=== PATIENT | female | born 1970 | race Caucasian/White ===

== ENCOUNTER 2021-09-11 18:18 | Emergency (ER) | payer OTHER ==
[~2021-09-11] VITALS: Ht 160 cm; Wt 97.5 kg
[2021-09-11] MEDS ORDERED: HYZAAR 100-251 EACH (19:24)
[2021-09-11] MEDS ORDERED: TOPROL XL50 M1 (19:25)
[2021-09-11] MEDS ORDERED: VAITORIN (19:25)
[2021-09-11] MEDS ORDERED: SYNTHROID50 MCG (19:25)
[2021-09-12] MEDS ORDERED: CIPRO500 MG PO (00:42)
[2021-09-12] MEDS ORDERED: FLAGYL500MG PO (00:42)
[2021-09-12] MEDS ORDERED: LEVSIN/SL0.125 MG SL ×2 (00:43)
== END 2021-09-12 01:07 ==
LOC: ER 18:18
DX: R10.9 Unspecified abdominal pain (principal)